=== PATIENT | female | born 1990 | race Asian ===

== ENCOUNTER 2018-04-22 22:30 | Emergency (ER) | payer OTHER ==
[~2018-04-22] VITALS: Ht 157.5 cm; Wt 59.0 kg
[2018-04-22 22:35] VITALS: BP 142/92
[2018-04-22] MEDS ORDERED: NKM (22:39)
[2018-04-22 22:41] VITALS: BP 141/91
[2018-04-22] MEDS ORDERED: Tetanus/Diptheria/Pertussis Vaccine 0.5ml Syr IM ONE (23:15)
[2018-04-22] MEDS ORDERED: Lidocaine 1% MPF 10mg/ml 5ml INJ ONE (23:15)
[2018-04-22] MEDS ORDERED: Bacitracin Oint UD TOPIC ONE (23:15)
--- NOTE | 2018-04-22 23:17 | Emergency Room Report ---
History of Present Illness General Chief Complaint: Laceration Source: Patient Present Illness HPI Patient presents with laceration to the left index finger. She tried to open up a honey container with a knife and slipped and she cut herself. There is no numbness. Bleeding was controlled with local pressure. She has full motion of her index finger. She is right-handed. She's unsure when she received her last tetanus shot. 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 [employer] Last Menstrual Period: last month Now: No Reviewed Nursing Documentation: PMH: Agreed; PSxH: Agreed Nursing Documentation-PMH Past Medical History: No Stated History Review of Systems Constitutional: Denies: fever Musculoskeletal: Reports: see HPI Skin: Reports: see HPI Neurological: Reports: see HPI Hematologic/Lymphatic: Reports: see HPI Physical Exam Vital Signs Date Time Temp Pulse Resp B/P (MAP) Pulse Ox O2 Delivery O2 Flow Rate FiO2 04/22/18 22:35 99.0 94 16 142/92 98 Room Air Sp02 EP Interpretation: reviewed, normal General Appearance: well appearing, no apparent distress Head: normocephalic, atraumatic ENT: hearing grossly normal, normal voice Neck: full range of motion, supple Respiratory: no respiratory distress, speaking full sentences Cardiovascular #2: 2+ radial (L) - good capillary fill Musculoskeletal: normal range of motion - Profundus and superficialis intact Neurologic: motor strength/tone normal, sensory intact Psychiatric: mood/affect normal Skin: laceration - 1 cm left index finger thumb side Procedures Laceration/Wound Repair Laceration/Wound Repair : Consent: Verbal Wound Location: upper extremity - L index finger Wound's Depth, Shape: superficial Wound Length (cm): 1 - 1.5 Wound Explored: clean Irrigated w/ Saline (ccs): 20 Betadine Prep?: Yes Anesthesia: 1% Lidocaine Volume Anesthetic (ccs): 1 Wound Debrided: none Wound Repaired With: sutures Suture Size/Type: 5:0, nylon Sterile Dressing Applied?: Yes Splint Applied?: No Patient Tolerated: Well Complications: None Medical Decision Making Diagnostic Impression: Primary Impression: Laceration of left index finger Qualified Codes: S61.211A - Laceration without foreign body of left index finger without damage to nail, initial encounter ER Course Patient presents with a laceration to the left index finger. This needs sutures. Also the patient needs tetanus. The patient will be given Tylenol. Patient sutured and tolerated well. Patient stable for outpatient observation and treatment. Last Vital Signs Date Time Temp Pulse Resp B/P (MAP) Pulse Ox O2 Delivery O2 Flow Rate FiO2 04/23/18 00:13 98.7 82 16 141/91 98 Room Air Status: improved Disposition: HOME, SELF-CARE Condition: Improved Scripts Bacitracin (Bacitracin) 28.4 Gm Oint...g. 1 APPLIC TOPIC BID, #10 GM Prov: Audi Butler MD 04/22/18 Audi Butler MD Apr 22, 2018 23:17
[2018-04-22] MEDS ORDERED: BACITRACIN15 GM TOPIC (23:58)
== END 2018-04-23 00:13 | disposition home or self-care (01) ==
LOC: EMR 23:09
DX: S61.211A Laceration without foreign body of left index finger without damage to nail, initial encounter (principal); W26.0XXA Contact with knife, initial encounter; Y93.G3 Activity, cooking and baking; Y92.69 Other specified industrial and construction area as the place of occurrence of the external cause; Z23 Encounter for immunization
CPT/HCPCS: 90471; 90715; 99283